=== PATIENT | female | born 2005 | race Caucasian/White ===

== ENCOUNTER 2025-10-01 12:58 | Outpatient (REF) | payer BC, SELFPAY ==
[2025-10-01 15:03] LABS: Hematocrit 44.0 % (37.0-47.0); Hemoglobin 14.3 g/dl (12.0-16.0); Mean Corpuscular HGB Conc 32.5 g/dl (31.0-35.0); Mean Corpuscular Hemoglobin 27.8 pg (27.0-33.0); Mean Corpuscular Volume 85.6 fL (80.0-98.0); NRBC Abs Auto 0.000 X10*3/uL (0.0-0.012); NRBC Pct Auto 0.0 /100WBC (0.0-0.2); Platelet Count 276 X10*3/uL (160-400); Red Blood Count 5.14 X10*6/uL (4.20-5.50); White Blood Count 12.5 X10*3/uL (4.8-10.8)
[2025-10-01 16:45] LABS: Anion Gap 12 (12-20)
[2025-10-01 16:49] LABS: Alanine Aminotransferase 12 U/L (0-31); Albumin Level 4.8 g/dL (3.5-5.0); Alkaline Phosphatase 62 U/L (39-117); Aspartate Amino Transferase 24 U/L (5-31); Blood Urea Nitrogen 12 mg/dL (9-16); Calcium 9.7 mg/dL (8.4-10.2); Carbon Dioxide 26 mmol/L (22-29); Chloride 104 mmol/L (96-108); Cholesterol 145 mg/dL (<200); Estimated Glomerular Filt Rate > 60; HDL Cholesterol 69 mg/dL (>40); Potassium 4.6 mmol/L (3.3-5.1); Sodium 137 mmol/L (135-145); Total Protein 7.2 g/dL (6.5-8.0); Triglycerides 66 mg/dL (<150)
--- OUTSIDE RECORDS SUMMARY | 2025-10-01 19:06 | XMS_ITS | Clinical Summary ---
Author Organization [facility] Address [address] [place] [address] Care Team Providers Care Commercial Assistant Name Role Phone Mahnaz Jasennacho Primary Care Provider [phone] Medications amoxicillin-cla vulanate (AUGMENTIN) 875-125 mg per tablet Take 1 tablet by mouth every 12 (twelve) hours. 5 Active chlorhexidine (PERIDEX) 0.12 % solution RINSE MOUTH WITH 15 MILLILITERS TWICE A DAY AFTER BRUSHING, SWISH IN MOUTH FOR 30 SECONDS THEN SPIT 5 Active clindamycin (CLEOCIN) 300 mg capsule TAKE 1 CAPSULE BY MOUTH THREE TIMES A DAY BY MOUTH UNTIL FINISHED 5 Active ondansetron (ZOFRAN) 4 mg tablet Take 1 tablet (4 mg total) by mouth every 8 (eight) hours if needed. 4 Active sertraline (ZOLOFT) 50 mg tablet Take 1 tablet (50 mg total) by mouth 1 (one) time each day. Active testosterone 20.25 mg/1.25 gram (1.62 %) gel in metered-dose pump PUMP1 PUMP TO SKIN IN THE MORNING TO SHOULDER, UPPER ARMS OR ABDOMEN TRANSDERMAL ONCE A DAY 30 DAYS 4 Active Surgical History Surgery Date Site/Laterality Comments MOUTH SURGERY PROCEDURE: ORAL SURGERY PROCEDURE; COMMENT: tooth removed Family History Medical History Relation Name Comments Stroke Other Relation Name Status Comments Brother Jamal Alive Father Ion Alive Maternal Grandfather Alive Maternal Grandmother Alive Mother Jackie Alive Other Paternal Grandfather Alive Paternal Grandmother Alive type 2 diabetes Sister Vero Alive Social History Tobacco Use Types Packs/Day Years Used Date Smoking Tobacco: Never Smokeless Tobacco: Never Alcohol Use Standard Drinks/Week Comments No 0 (1 standard drink = 0.6 oz pur e alcohol) Comments Unknown Sex and Gender Information Value Date Recorded Sex Assigned at Not on file Legal Sex Female 11:43 PM EST Gender Identity Not on file Sexual Orientation Not on file Obstetrics History Last Filed Vital Signs Vital Sign Reading Time Taken Comments Blood Pressure 102/66 12/29/2023 2:30 PM EST Pulse 109 05/21/2023 8:33 AM EDT Temperature - - Respiratory Rate - - Oxygen Saturation - - Inhaled Oxygen Concentration - - Weight 52.7 kg (116 lb 3.2 oz) 12/29/2023 2:30 P M EST Height 167.6 cm (5' 6 ) 12/29/2023 2:30 PM EST Body Mass Index 18.76 12/29/2023 2:30 PM EST Plan of Treatment Health Maintenance Due Date Last Done Comments Gonorrhea/Chlamydia Screening 2005 Meningococcal B Vaccine (1 of 2 - Standard) 2021 HIV Screening 10/11/2022 Hepatitis C Screening 10/11/2022 Social Influencers of Health Screening 10/11/2022 HPV Vaccines (2 - 3-dose series) 06/18/2023 05/21/2023 Annual Well Child Visit (3-21 years old) 05/21/2024 05/21/2023, 02/17/2021, 09/21/2017 Depression Screening 11/08/2024 COVID-19 Vaccine ( season) 2025 01/27/2024, 05/13/2022, 05/01/2021, Additional history exists Influenza Vaccine (#1) 2025 DTaP,Tdap,and Td Vaccines (7 - Td or Tdap) 09/21/2027 09/21/2017, 03/24/2011, 07/16/2008, Additional history exists RSV Immunization Adult Patients (1 - 1-dose 75+ series) 2080 Hepatitis B Vaccines Completed 01/20/2006, 2005, 2005 HIB Vaccines Completed 07/16/2008 Pneumococcal Vaccine: Pediatrics (0 to 5 Years) and At-Risk Patients (6 to 49 Years) Completed 07/16/2008 IPV Vaccines Completed 03/24/2011, 06/2008, 07/14/2006, Additional history exists MMR Vaccines Completed 03/24/2011, 09/17/2006 Varicella Vaccines Completed 03/24/2011, 07/10/2008 Meningococcal ACWY Vaccine Completed 05/21/2023, Hepatitis A Vaccines Aged Out No long er eligible based on patient's age to complete this topic RSV Immunization Patients Under 20 months Aged Out No longer eligible based on patient's age to complete this topic Care Teams Commercial Assistant Relationship Specialty Start Date End Date Bright Joya DO [address] [place] [id number] PCP - General 03/17/23
== END 2025-10-01 12:59 | disposition home or self-care (01) ==
LOC: HO.LAB 12:58
PROVIDERS: PCP Internal Medicine; Visit Provider Internal Medicine
DX: Z00.00 Encounter for general adult medical examination without abnormal findings (principal); K44.9 Diaphragmatic hernia without obstruction or gangrene; F41.9 Anxiety disorder, unspecified; R63.6 Underweight
CPT/HCPCS: 36415; 80053; 80061; 82306; 83036; 84443; 85027; 96127

== ENCOUNTER 2025-10-01 12:58 | Outpatient (AMB) | payer BC, SELFPAY ==
[2025-10-01 13:21] VITALS: BP 120/80; PULSE 83; TEMP 36.3; O2SAT 98
--- NOTE | 2025-10-01 13:21 | A.OFFPC_ITS ---
Vital Signs 10/01/25 13:21 Weight 124 lb 8 oz BP 120/80 Blood Pressure Location Lt brachial Position Sitting Pulse 83 Pulse Source Pulse Oximeter Temp 97.3 F Temp Source Temporal Artery Scan Pulse Oximetry (%) 98 Oxygen Delivery Method Room Air Intake Visit Reasons: [employer]IV[employer] ADVISOR // hiatal hernia Allergies No Known Allergies Allergy (Verified 10/01/25 13:22) Medication List - Last Reconciled 10/01/25 by Reji Pack MD No Known Home Meds Tobacco use date assessed: 10/01/25 Dental Screening Dental Screen Date: 10/01/25 HPI HPI Comments History of Present Illness Details The patient is a 20 year old individual with PMH of hiatal hernia presenting for a new patient visit to establish primary care and manage ongoing health issues. The patient has a history of a hiatal hernia, diagnosed in high school via a barium swallow, which was prompted by severe vomiting. The patient experiences significant acid reflux with most foods and a sensation of a lump in the upper abdomen, particularly with carbonated beverages. The patient recently started taking [id number] omeprazole two weeks ago at random times. Additionally, the patient reports a globus sensation, feeling as if the throat is closing, which prompted two ER visits where lung pathology was ruled out; this symptom has improved since quitting smoking. The patient reports worsening anxiety and depression since starting college and requests medication. The patient has a prior history of taking Zoloft, which was discontinued due to severe vomiting. The patient was previously underweight, at 105 pounds in June, and has successfully gained about 20 pounds by tracking calories and consuming around 2,500 calories per day. Past surgical history is significant for a tooth implant about a year ago. Family history is notable for a grandfather with a heart attack, another grandfather with a stroke, and a sister with Sumaya's disease. There is no family history of colon cancer. [facility] Family History (Updated 10/01/25 @ 13:29 by Adrianne Enriquez MA) Father No problems noted. Mother No problems noted. Social History Patient Tobacco Use Status: Never used Tobacco Tobacco use type: Cigarette e-Cigarette/Vaping Use: Never Used Second Hand Smoke Exposure: No Current occupational status: employed and student (real time operator student) Current occupation: [employer] Cognitive needs: No Hearing needs: No Vision needs: No Questionnaire PHQ-9 Over the last 2 weeks, how often have you been bothered by any of the following problems? 1. Little interest or pleasure in doing things: several days 2. Feeling down, depressed, or hopeless: several days 3. Trouble falling or staying asleep, or sleeping too much: several days 4. Feeling tired or having little energy: more than half the days 5. Poor appetite or overeating: not at all 6. Feeling bad about yourself - or that you are a failure or have let yourself or your family down: several days 7. Trouble concentrating on things, such as reading the newspaper or watching television: several days 8. Moving or speaking so slowly that other people could have noticed. Or the opposite - being so fidgety or restless that you have been moving around a lot more than usual: not at all 9. Thoughts that you would be better off or of hurting yourself in some w ay: not at all Total score: 7 Depression Screening Interpretation: Positive (Prozac) Depression Screening Follow-up: New Medication prescribed Depression Screening Done: Yes Source: Developed by Drs. Jose A Rosario, Kimberly Dhillon, Janusz Fuller and colleagues, with an educational estefania from [employer]. Thrive Questionnaire Date Thrive assessed: 09/24/25 I am a: Patient What is your living situation today?: I have a steady place to live Within the past 12 months, did the food you bought not last and you didn't have the money to get more?: Never true Within the past 12 months, did you worry whether your food would run out before you got money to buy more?: Never true Do you have trouble paying for medicines?: No Do you have trouble getting transportation to medical appointments?: No Do you have trouble paying your heating and electricity bill?: No Do you have trouble taking care of your child, family member or friend?: No Do you have trouble with day-to-day activities such as bathing, preparing meals, shopping, managing finances, etc.?: No Are you currently unemployed and looking for a job?: No Are you interested in more education?: Yes Please select the resources that you would like help with: None Currently or been in a relationship where the following occur: No concerns reported THRIVE Score: 0 AUDIT C Alcohol Use Questionnaire (AUDIT-C) 1. How often do you have a drink containing alcohol?: Monthly or less 2. How many drinks containing alcohol do you have on a typical day when you are drinking?: 3 or 4 3. How often do you have six or more drinks on one occasion?: Never Total Score: 2 RODRIGO-7 AMB Questionnaire RODRIGO-7 Date RODRIGO - 7 assessed: 10/01/25 Feeling nervous, anxious, or on edge: 3 = Nearly every day Not being able to stop or control worryin = Nearly every day Worrying too much about different things: 3 = Nearly every day Trouble relaxin = Nearly every day Being so restless that it is hard to sit still: 2 = More than half the days Becoming easily annoyed or irritable: 2 = More than half the days Feeling afraid as if something awful might happen: 2 = More than half the days Total RODRIGO-7 score (0-4 normal; 5-9 mild; 10-14 moderate; 15-21 severe): 18 Source: Developed by Drs. Jose A Rosario, Kimberly Dhillon, Janusz Fuller and colleagues, with an educational estefania from [employer]. Review of Systems Const Details: As per HPI. Physical exam (Primary Care) Vital Signs: Last Vital Signs Temp 97.3 F 10/01/25 13:21 Pulse 83 10/01/25 13:21 BP 120/80 10/01/25 13:21 Pulse Ox 98 10/01/25 13:21 Oxygen Delivery Method Room Air 10/01/25 13:21 Tobacco/Smoking Status: Tobacco use Status Tobacco use date assessed 10/01/25 10/01/25 13:31 Patient Tobacco Use Status Never used Tobacco 10/01/25 13:31 Tobacco use type Cigarette 10/01/25 13:31 e-Cigarette/Vaping Use Never Used 10/01/25 13:31 PHQ-9: PHQ-9 Score PHQ-9: Total score 7 10/01/25 13:31 Depression Screening Interpretation: Positive (Prozac) Depression Screening Follow-up: New Medication prescribed Thrive Assessment: Date of Thrive Assessment Date Thrive assessed 09/24/25 10/01/25 13:31 Currently or been in a relationship where the following occur: No concerns reported Const Other: Pertinent findings are in BOLD GENERAL APPEARANCE NAD, activity normal for age, well developed/ well nourished, no cyanosis, pallor, or diaphoresis. EYES lids/conjunctiva normal. EARS/NOSE/THROAT Mucous membranes moist, nares normal, lips/teeth normal uvula midline without oral pharyngeal erythema, exudate or swelling TMs normal bilaterally. No lymphangitis/lymphedema. HEAD/NECK normocephalic atraumatic, no facial trauma, neck is supple. RESPIRATORY respiratory effort normal, speaks in full sentences, no tripod position, no accessory muscle use. Lungs clear to auscultation without rhonchi, wheezes, rales CARDIAC Regular rate and rhythm, no edema. ABDOMINAL Soft, ND/NT. No evidence of fluid wave. No pulsatile masses on exam, rebound tenderness, Hackett sign or pain over Mcburney's point. MUSCLES/EXTREMITIES No abnormal range of motion, no swelling. SKIN Warm, pink and dry. No rashes, dermatoses, petechiae or lesions. NEUROLOGICAL Speech is clear and appropriate. Normal level of consciousness. Gait and coordination are normal. 5/5 strength in all extremities. PSYCH Normal mood and affect. Judgement/competence is appropriate Coding Level of Care Code New Pt Level 4 (89090) Diagnoses Hiatal hernia K44.9 Anxiety F41.9 Underweight R63.6 Time Spent (min) 45 Assessment & Plan Assessment & Plan (1) Hiatal hernia: Code(s): K44.9 - Diaphragmatic hernia without obstruction or gangrene Category: Medical Plan: - The patient's symptoms of acid reflux and globus sensation are consistent with the known diagnosis of hiatal hernia and associated GERD. - Prescribed omeprazole, instructing the patient to take it daily, 30 minutes before the first meal on an empty stomach. - A referral to Gastroenterology will be placed for further evaluation of symptoms, particularly the globus sensation. - Counseled the patient on dietary modifications, including keeping a food diary to identify triggers, but advised against significant restriction at this time to support weight gain goals. (2) Anxiety: Code(s): F41.9 - Anxiety disorder, unspecified Category: Medical Plan: - The patient reports worsening anxiety and depression since starting college and has a history of intolerance to Zoloft. - Prescribed fluoxetine (Prozac) 10 mg daily to be initiated. - Discussed that if fluoxetine is not effective, Wellbutrin could be considered as an alternative. - If these options fail, a referral to psychiatry will be considered. - A follow-up visit is scheduled in six weeks to monitor response to treatment. (3) Underweight: Code(s): R63.6 - Underweight Category: Medical Plan: - The patient is actively working on gaining weight and has successfully gained 20 pounds since June. - The current strategy of consuming 2,500 calories per day is supported. Plan I had a detailed discussion with the patient about the management of the hiatal hernia and associated acid reflux. I explained that surgery is less common now and that medication is the primary treatment. I prescribed omeprazole and stressed the importance of taking it 30 minutes before the first meal for maximum efficacy. Given the globus sensation, I recommended a referral to a chiropractor assistant for further evaluation. We discussed dietary triggers, and I recommended keeping a food diary, but advised against restrictive dieting for now, to support the patient's weight gain goals. We also addressed the patient's worsening anxiety and depression. After discussing the previous intolerance to Zoloft, we decided to start a trial of fluoxetine 10 mg daily. I informed the patient about alternative medications like Wellbutrin and the option of a psychiatry referral if needed. I scheduled a follow-up in six weeks to assess the medication's effectiveness. I ordered general labs, including a thyroid panel as requested, and advised the patient to have them drawn while fasting. I commended the patient on quitting smoking and offered my support should any challenges arise. I also explained that the scheduling department will call for the GI referral and that the annual physical will be deferred until the patient is 21. Orders: Orders Complete Blood Count no Diff Today Z00.00 - Encounter for general adult medical examination without abnormal findings Hemoglobin A1c Today Z00.00 - Encounter for general adult medical examination without abnormal findings Lipid Panel Today Z00.00 - Encounter for general adult medical examination without abnormal findings TSH reflex Free T4 Today Z00.00 - Encounter for general adult medical examination without abnormal findings Vitamin D 25-OH Total Today Z00.00 - Encounter for general adult medical examination without abnormal findings Comprehensive Met. Panel Today Z00.00 - Encounter for general adult medical examination without abnormal findings Referrals Gastroenterology Referral K44.9 - Diaphragmatic hernia without obstruction or gangrene Medications: New omeprazole 40 mg PO DAILY 30 caps 5RF fluoxetine (Prozac) 10 mg PO DAILY 60 caps 1RF
== END 2025-10-01 13:56 | disposition home or self-care (01) ==
LOC: HO.HMCH 12:59
PROVIDERS: PCP Internal Medicine; Visit Provider Internal Medicine
DX: K44.9 Diaphragmatic hernia without obstruction or gangrene (principal); F41.9 Anxiety disorder, unspecified; R63.6 Underweight